=== PATIENT | male | born 1990 | race Caucasian/White ===

== ENCOUNTER 2020-11-15 08:08 | Emergency (ER) | payer SELFPAY ==
[2020-11-15 09:24] LABS: Absolute Lymphocytes (CBC) 0.8 K/uL (0.7-4.9); Basophils % 0.4 % (0-1.3); Hematocrit 44.5 % (39.6-49.0); Lymphocytes % 13.1 % (15.3-44.8); MPV 7.5 fL (7.6-11.3); RBC Red Blood Cell Count 5.17 M/uL (4.33-5.43)
[2020-11-15] MEDS ORDERED: NA CHLORIDE 0.9% 1,000 ML ONE (09:35)
[2020-11-15 09:47] LABS: ALT/SGPT 22 U/L (12-78); AST/SGOT 19 U/L (15-37); Alkaline Phosphatase 54 U/L (45-117); BUN Blood Urea Nitrogen 7 mg/dL (7-18); Bicarbonate 23 mmol/L (21-32); Bilirubin Direct 0.2 mg/dL (0-0.2); Glucose Level 88 mg/dL (74-106); Lipase 93 U/L (73-393); Potassium 3.5 mmol/L (3.5-5.1); Sodium Level 137 mmol/L (136-145)
--- NOTE | 2020-11-15 10:12 | RAD REPORT ---
EXAM DESCRIPTION: CT - Abdomen Pelvis W Contrast - 11/15/2020 9:58 am CLINICAL HISTORY: Constipation;Abd pain COMPARISON: No comparisons TECHNIQUE: Biphasic, helical CT imaging of the abdomen and pelvis was performed following 100 ml non -ionic IV contrast. No oral contrast administered. All CT scans are performed using dose optimization technique as appropriate and may include automated exposure control or mA/KV adjustment according to patient size. FINDINGS: No suspicious findings in the lung bases. The liver, spleen, and pancreas show no suspicious findings. Gallbladder is mostly contracted. No shaniqua iary tree dilatation. Symmetric renal function is seen with no hydronephrosis or suspicious renal mass. No pyelonephritis o r acute parenchymal process. No bladder abnormalities. No adrenal abnormalities. No gastric dilatation or gastric wall thickening. No dilated small bowel loop or focal small bowel ab normality seen. No appendicitis findings identifiable. Sigmoid colon is redundant. Colon is mostly de compressed. There is fluid in the rectum and redundant sigmoid colon. No abnormal stool volume is pre sent. No free air, free fluid or inflammatory stranding. No hernia, mass or bulky lymphadenopathy. No suspicious bony findings. IMPRESSION: Contrast enhanced CT abdomen and pelvis showing no significant or suspicious finding. Nonacute findings detailed in the body of the report.
--- NOTE | 2020-11-15 10:45 | ER ---
Nurse's Notes [facility] Name: Raji Scott Age: 30 yrs Sex: Male : 1990 Arrival Date: 11/15/2020 Time: 08:15 Bed 13 Private MD: Diagnosis: Constipation;Constipation, unspecified;Abdominal pain, Generalized;Abdominal pain, unspecified;Anxiety disorder, unspecified-Environmental/hospital aversion Presentation: 11/15 08:20 Chief complaint: Patient states: constipation. Pt reports last normal BM was Wednesday. aa5 Reports he was seen at urgent care yesterday and prescribed magnesium citrate, pt reports some diarrhea, reports abd cramping. Denies vomiting. 08:20 Coronavirus screen: At this time, the client does not indicate any symptoms associated aa5 with coronavirus-19. Ebola Screen: Patient negative for fever greater than or equal to 101.5 degrees Fahrenheit, and additional compatible Ebola Virus Disease symptoms. Initial Sepsis Screen: Does the patient meet any 2 criteria? HR > 90 bpm. Does the patient have a suspected source of infection? No. Patient's initial sepsis screen is negative. Risk Assessment: Do you want to hurt yourself or someone else? Patient reports no desire to harm self or others. Onset of symptoms was 2020. 08:20 Acuity: JYOTI 3 aa5 08:20 Method Of Arrival: Ambulatory [facility] Triage Assessment: 08:45 General: Appears distressed, uncomfortable, slender, Behavior is cooperative, bp appropriate for age, anxious. Pain: Complains of pain in abdomen. EENT: No deficits noted. Neuro: No deficits noted. Cardiovascular: No deficits noted. Respiratory: No deficits noted. GI: Abdomen is non-distended. Historical: - Allergies: 08:31 PENICILLINS; aa5 - PMHx: 08:31 None; aa5 - PSHx: 08:31 None; aa5 - Immunization history:: Client reports having NOT received the Covid vaccine. - Social history:: Smoking status: Patient denies any tobacco usage or history of. Screenin:45 Abuse screen: Denies threats or abuse. Denies injuries from another. Nutritional bp screening: No deficits noted. Tuberculosis screening: No symptoms or risk factors identified. Fall Risk None identified. Assessment: 08:45 General: SEE TRIAGE NOTE. bp 11:55 GI: iw Vital Signs: 08:20 BP 123 / 97; Pulse 132; Resp 20 S; Temp 98.2(O); Pulse Ox 100% on R/A; Weight 65.77 kg aa5 (R); Height 5 ft. 11 in. (180.34 cm) (R); Pain 4/10; 08:20 Body Mass Index 20.22 (65.77 kg, 180.34 cm) aa5 ED Course: 08:15 Patient arrived in ED. as 08:17 Guillermo Denton MD is Attending Physician. kdr 08:20 Arm band placed on. aa5 08:23 Rogelio Larson, RN is Primary Nurse. bp 08:30 Triage completed. aa5 08:45 Patient has correct armband on for positive identification. Bed in low position. Call bp light in reach. Side rails up X2. 09:16 Inserted saline lock: 20 gauge in right antecubital area, using aseptic technique. mt Blood collected. 09:58 CT Abd/Pelvis - IV Contrast Only In Process Unspecified. EDMS 11:55 No provider procedures requiring assistance completed. IV discontinued, intact, iw bleeding controlled, No redness/swelling at site. Pressure dressing applied. Administered Medications: 09:15 Drug: NS 0.9% 1000 ml Route: IV; Rate: 1 bolus; Site: right antecubital; bp Outcome: 10:45 Discharge ordered by . kdr 11:55 Discharged to home ambulatory. iw 11:55 Condition: good 11:55 Discharge instructions given to patient, Instructed on discharge instructions, follow up and referral plans. medication usage, Demonstrated understanding of instructions, follow-up care, medications, Prescriptions given X 1. 11:55 Patient left the ED. iw Signatures: Dispatcher [employer] EDMS Guillermo Dentno MD MD kdr Talia Fuller as Hilda Tinsley, RN RN Jewels Archuleta RN RN [facility] Shannan Gray sc Rogelio Larson, INOCENCIO RN bp
--- NOTE | 2020-11-15 10:45 | EDPHYS ---
Physician Documentation [facility] Name: Raji Scott Age: 30 yrs Sex: Male : 1990 Arrival Date: 11/15/2020 Time: 08:15 Bed 13 Private MD: ED Physician Guillermo Denton HPI: 11/15 08:41 This 30 yrs old Male presents to ER via Ambulatory with complaints of kdr Constipation, Abdominal Cramping, Back Pain. 08:41 The patient presents with abdominal pain in the lower abdomen. Onset: The kdr symptoms/episode began/occurred gradually, Since Wednesday when he had his last normal bowel movement. The symptoms radiate to both flanks. Associated signs and symptoms: Pertinent positives: nausea, Poor or diminished appetite. The symptoms are described as achy, crampy, dull, vague. Modifying factors: The symptoms are alleviated by nothing, the symptoms are aggravated by nothing. Severity of pain: At its worst the pain was mild moderate just prior to arrival, in the emergency department the pain is unchanged. The patient has not experienced similar symptoms in the past. The patient has been recently seen by a physician: The patient has been recently seen at an urgent care, yesterday, Patient was seen at urgent care yesterday, they did some plain films and diagnosed him with constipation. They wrote a prescription for magnesium citrate. He had taken half a bottle and has had some stool with that treatment. He still however feels constipated now has low abdominal pain is rating bilaterally to his back. Historical: - Allergies: 08:31 PENICILLINS; aa5 - PMHx: 08:31 None; aa5 - PSHx: 08:31 None; aa5 - Immunization history:: Client reports having NOT received the Covid vaccine. - Social history:: Smoking status: Patient denies any tobacco usage or history of. ROS: 08:41 Constitutional: Negative for fever, chills, and weight loss, Eyes: Negative for injury, kdr pain, redness, and discharge, ENT: Negative for injury, pain, and discharge, Neck: Negative for injury, pain, and swelling, Cardiovascular: Negative for chest pain, palpitations, and edema, Respiratory: Negative for shortness of breath, cough, wheezing, and pleuritic chest pain, Back: Negative for injury and pain, : Negative for injury, bleeding, discharge, and swelling, MS/Extremity: Negative for injury and deformity, Skin: Negative for injury, rash, and discoloration, Neuro: Negative for headache, weakness, numbness, tingling, and seizure activity. Psych: Negative for depression, anxiety, suicide ideation, homicidal ideation, and hallucinations, Allergy/Immunology: Negative for hives, rash, and allergies, Endocrine: Negative for neck swelling, polydipsia, polyuria, polyphagia, and marked weight changes, Hematologic/Lymphatic: Negative for swollen nodes, abnormal bleeding, and unusual bruising. 08:41 Abdomen/GI: Positive for abdominal pain, nausea, constipation, abdominal cramps, Negative for black/tarry stool, rectal pain, rectal bleeding, bowel incontinence, This most recent stools have been very loose. Exam: 08:41 Constitutional: This is a well developed, well nourished patient who is awake, alert, kdr and in no acute distress. Head/Face: Normocephalic, atraumatic. Eyes: Pupils equal round and reactive to light, extra-ocular motions intact. Lids and lashes normal. Conjunctiva and sclera are non-icteric and not injected. Cornea within normal limits. Periorbital areas with no swelling, redness, or edema. Neck: Trachea midline, no thyromegaly or masses palpated, and no cervical lymphadenopathy. Supple, full range of motion without nuchal rigidity, or vertebral point tenderness. No Meningismus. Chest/axilla: Normal chest wall appearance and motion. Nontender with no deformity. No lesions are appreciated. Cardiovascular: Regular rate and rhythm with a normal S1 and S2. No gallops, murmurs, or rubs. Normal PMI, no JVD. No pulse deficits. Patient is mildly tachycardic but states that he has a history of anxiety related to being visited by doctors Respiratory: Lungs have equal breath sounds bilaterally, clear to auscultation and percussion. No rales, rhonchi or wheezes noted. No increased work of breathing, no retractions or nasal flaring. Back: No spinal tenderness. No costovertebral tenderness. Full range of motion. Skin: Warm, dry with normal turgor. Normal color with no rashes, no lesions, and no evidence of cellulitis. MS/ Extremity: Pulses equal, no cyanosis. Neurovascular intact. Full, normal range of motion. Neuro: Awake and alert, GCS 15, oriented to person, place, time, and situation. Cranial nerves II-XII grossly intact. Motor strength 5/5 in all extremities. Sensory grossly intact. Cerebellar exam normal. Normal gait. Psych: Awake, alert, with orientation to person, place and time. Behavior, mood, and affect are within normal limits. 08:41 Abdomen/GI: Inspection: abdomen appears normal, Bowel sounds: diminished, in all quadrants, Palpation: soft, mild abdominal tenderness, mass, is not appreciated, rebound tenderness, is not appreciated. Vital Signs: 08:20 BP 123 / 97; Pulse 132; Resp 20 S; Temp 98.2(O); Pulse Ox 100% on R/A; Weight 65.77 kg aa5 (R); Height 5 ft. 11 in. (180.34 cm) (R); Pain 4/10; 08:20 Body Mass Index 20.22 (65.77 kg, 180.34 cm) aa5 MDM: 08:41 Data reviewed: vital signs, nurses notes, lab test result(s), radiologic studies. kdr Counseling: I had a detailed discussion with the patient and/or guardian regarding: the historical points, exam findings, and any diagnostic results supporting the discharge/admit diagnosis, lab results, radiology results. 10:45 Patient medically screened. kdr 11/15 08:40 Order name: Basic Metabolic Panel; Complete Time: 10:42 kdr 11/15 08:40 Order name: CBC with Diff; Complete Time: 09:29 kdr 11/15 08:40 Order name: Hepatic Function; Complete Time: 10:42 kdr 11/15 08:40 Order name: Lipase; Complete Time: 10:42 kdr 11/15 08:40 Order name: CT Abd/Pelvis - IV Contrast Only; Complete Time: 10:42 kdr 11/15 08:40 Order name: IV Saline Lock; Complete Time: 09:16 kdr 11/15 08:40 Order name: Labs collected and sent; Complete Time: 09:16 kdr Administered Medications: 09:15 Drug: NS 0.9% 1000 ml Route: IV; Rate: 1 bolus; Site: right antecubital; bp Disposition Summary: 11/15/20 10:45 Discharge Ordered Location: Home kdr Problem: new kdr Symptoms: have improved kdr Condition: Stable kdr Diagnosis - Constipation kdr - Constipation, unspecified kdr - Abdominal pain, Generalized kdr - Abdominal pain, unspecified kdr - Anxiety disorder, unspecified - Environmental/hospital aversion kdr Followup: kdr - With: Private Physician - When: 2 - 3 days - Reason: If symptoms return, Further diagnostic work-up, Recheck today's complaints, Continuance of care, Re-evaluation by your physician Discharge Instructions: - Discharge Summary Sheet kdr - Constipation, Adult, [id number] kdr - Abdominal Pain, Adult, [id number] kdr - Social Anxiety Disorder, Adult kdr Forms: - Medication Reconciliation Form kdr - Thank You Letter kdr - Work release form eb Prescriptions: - Miralax 17 gram Oral powder in packet - take 1 packet by ORAL route once daily As needed; 1 box; Refills: 0, Product kdr Selection Permitted Signatures: Dispatcher [employer] Guillermo Crowley MD MD kdr Jewels Archuleta, RN RN aa5 Rogelio Larson RN RN bp
[2020-11-15 12:02] VITALS: BP 123/97; TEMP 98.2; O2SAT 100
== END 2020-11-15 11:55 | disposition home or self-care (01) ==
LOC: ER 08:08
DX: K59.00 Constipation, unspecified (principal); F41.9 Anxiety disorder, unspecified; Z88.0 Allergy status to penicillin
CPT/HCPCS: 36415; 74177; 80048; 80076; 83690; 85025; 99284; J7030; Q9967